=== PATIENT | male | born 1950 | race Caucasian/White ===

== ENCOUNTER 2018-07-21 10:00 | Inpatient (IN) ==
[2018-07-21] MEDS ORDERED: ALBUTEROL/IPRATROPIUM 3 ML NEB RESP TX STA (10:27)
[2018-07-21] MEDS ORDERED: SODIUM CHLORIDE 0.9% 500 ML IV STA (10:27)
[2018-07-21] MEDS ORDERED: ACETAMINOPHEN 500 MG TABLET PO STA (10:27)
[2018-07-21 10:39] LABS: Basophils # 0.1 10*3/uL (0.0-0.2); Basophils % 0.8 % (0.0-0.8); Eosinophils # 0.1 10*3/uL (0.0-0.87); Eosinophils % 0.7 % (0.00-10.9); Hematocrit 40.7 VOL% (42.0-52.0); Hemoglobin 14.4 GM/DL (14.0-18.0); Immature Granulocytes % 0.4 %; Immature Granulocytes Absolute 0.04 #; Lymphocytes # 0.7 10*3/uL (1.4-4.0); Lymphocytes % 6.9 % (21.2-54.2); Mean Corpuscular HGB Conc 35.4 GM/DL (32-36); Mean Corpuscular Hemoglobin 30 PG (27-34); Mean Corpuscular Volume 85.9 FL (87-102); Mean Platelet Volume 10.7 FL (9.6-12.0); Monocytes # 0.5 10*3/uL (0.11-0.8); Monocytes % 4.8 % (1.7-12.7); Neutrophils # 8.9 10*3/uL (1.4-7.4); Neutrophils % 86.4 % (38.7-73.9); Platelet Count 241 T/CUMM (130-400); Red Blood Count 4.74 MC/CUMM (3.8-5.5); Red Cell Distribution Width 13.2 % (9.3-17.3); White Blood Count 10.3 T/CUMM (4-12)
[2018-07-21 10:43] LABS: INR 0.9
[2018-07-21 10:52] LABS: Albumin 3.9 G/DL (3.4-5.0); Bilirubin,Total 1.3 MG/DL (0.2-1.0); Calcium 8.7 MG/DL (8.5-10.1); Osmolality,Calculated 273.8 MOS/KG (273-304); Potassium 5.3 MMOL/L (3.5-5.1); Total Protein 7.9 G/DL (6.4-8.3)
[2018-07-21 11:00] LABS: Lactic Acid 1.9 MMOL/L (0.4-2.0)
[2018-07-21 11:43] LABS: Apearance,Urine CLEAR (Clear); Bilirubin,Urine Negative (Negative); Blood, Urine Negative (Negative); Glucose,Urine (UA) Negative (Negative); Hyaline Casts,Urine 5 /LPF (0-3); Ketones,Urine Negative (Negative); Mucus,Urine Occasional /LPF (Occasional); Nitrite,Urine Negative (Negative); Protein,Urine Negative; RBC,Urine <1 /HPF (0-4); Urine Color Yellow (Yellow); Urine Specific Gravity 1.017 (1.001-1.035); Urine Urobilinogen < 2.0 EU/DL (0.2-1.0); WBC,Urine 1 /HPF (0-6)
[2018-07-21] MEDS ORDERED: cefTRIAXone 1,000 MG in SODIUM CHLORIDE 0.9% 100 ML IV STA (13:22)
[2018-07-21] MEDS ORDERED: cefTRIAXone 1,000 MG in SYRINGE 1 EACH IV STA (13:32)
[2018-07-21 14:29] LABS: Troponin I 0.103 NG/ML (0.00-0.045)
[2018-07-21 14:37] LABS: Barbiturates Screen,Urine Negative (Negative); Benzodiazepines Screen,Urine Negative (Negative); Cannabinoid Screen,Urine Negative (Negative); Opiate Screen,Urine Negative (Negative); Phencyclidine Screen,Urine Negative (Negative)
[2018-07-21] MEDS ORDERED: NITROGLYCERIN SL 0.4 MG TABLET SL PRN (15:48)
[2018-07-21] MEDS ORDERED: ALBUTEROL/IPRATROPIUM 3 ML NEB RESP TX PRN (15:48)
[2018-07-21] MEDS ORDERED: ACETAMINOPHEN 325 MG TABLET PO PRN (15:48)
[2018-07-21] MEDS ORDERED: ONDANSETRON 4 MG/2 ML VIAL IV PRN (15:48)
[2018-07-21] MEDS ORDERED: SODIUM CHLORIDE 0.9% 1,000 ML IV SCH (16:00)
[2018-07-21] MEDS: metroNIDAZOLE INJ 500 MG in PREMIX 1 EACH IV SCH (16:40)
[2018-07-21] MEDS: SODIUM CHLORIDE 0.9% 1,000 ML IV SCH (16:40)
[2018-07-21] MEDS ORDERED: CARVEDILOL 3.125 MG TABLET PO ONE (18:27)
[2018-07-21] MEDS ORDERED: ENOXAPARIN 30 MG/0.3 ML SYRINGE SUBCUT SCH ×2 (18:30→21:00)
[2018-07-21] MEDS: CIPROFLOXACIN INJ 400 MG in PREMIX 1 EACH IV SCH (18:36)
[2018-07-21] MEDS ORDERED: CARVEDILOL 3.125 MG TABLET PO SCH (21:00)
[2018-07-21] MEDS: DOCUSATE SODIUM 100 MG CAPSULE PO SCH (22:12)
[2018-07-21] MEDS: AMITRIPTYLINE 100 MG TABLET PO SCH (22:12)
[2018-07-21] MEDS: TEMAZEPAM 7.5 MG CAPSULE PO PRN (22:13)
[2018-07-21] MEDS: EZETIMIBE 10 MG TABLET PO SCH (22:13)
[2018-07-21] MEDS: ATORVASTATIN 20 MG TABLET PO SCH (22:13)
[2018-07-22] MEDS: metroNIDAZOLE INJ 500 MG in PREMIX 1 EACH IV SCH ×3 (00:17→15:58)
[2018-07-22] MEDS: CIPROFLOXACIN INJ 400 MG in PREMIX 1 EACH IV SCH ×2 (05:42→17:07)
[2018-07-22] MEDS: SODIUM CHLORIDE 0.9% 1,000 ML IV SCH ×2 (05:48→10:52)
[2018-07-22 05:50] LABS: Basophils # 0.1 10*3/uL (0.0-0.2); Basophils % 0.8 % (0.0-0.8); Hematocrit 36.7 VOL% (42.0-52.0); Hemoglobin 12.8 GM/DL (14.0-18.0); Immature Granulocytes % 0.3 %; Immature Granulocytes Absolute 0.02 #; Lymphocytes # 0.8 10*3/uL (1.4-4.0); Lymphocytes % 10.6 % (21.2-54.2); Mean Corpuscular HGB Conc 34.9 GM/DL (32-36); Mean Corpuscular Hemoglobin 29 PG (27-34); Mean Corpuscular Volume 84.4 FL (87-102); Mean Platelet Volume 9.9 FL (9.6-12.0); Monocytes # 0.7 10*3/uL (0.11-0.8); Monocytes % 9.1 % (1.7-12.7); Neutrophils % 79.2 % (38.7-73.9); Platelet Count 176 T/CUMM (130-400); Red Blood Count 4.35 MC/CUMM (3.8-5.5); Red Cell Distribution Width 13.2 % (9.3-17.3); White Blood Count 7.6 T/CUMM (4-12)
[2018-07-22 06:21] LABS: Albumin 3.2 G/DL (3.4-5.0); Bilirubin,Total 1.3 MG/DL (0.2-1.0); Calcium 8.1 MG/DL (8.5-10.1); Osmolality,Calculated 277.4 MOS/KG (273-304); Potassium 3.5 MMOL/L (3.5-5.1); Risk Ratio 3.48; Total Protein 6.3 G/DL (6.4-8.3); VLDL CHOLESTEROL 26.6 MG/DL
[2018-07-22] MEDS ORDERED: MAGNESIUM SULF RIDER 2 GM in PREMIX 1 EACH IV ONE (08:36)
[2018-07-22] MEDS ORDERED: PANTOPRAZOLE 40 MG TABLET PO SCH (09:00)
[2018-07-22] MEDS: DULoxetine 30 MG CAPSULE PO SCH (09:15)
[2018-07-22] MEDS: PANTOPRAZOLE 40 MG TABLET PO SCH (09:15)
[2018-07-22] MEDS: FOSINOPRIL 10 MG TABLET PO SCH (09:15)
[2018-07-22] MEDS: ASPIRIN 325 MG TABLET PO SCH (09:15)
[2018-07-22] MEDS: DOCUSATE SODIUM 100 MG CAPSULE PO SCH ×3 (09:15→21:37)
[2018-07-22] MEDS: CARVEDILOL 3.125 MG TABLET PO SCH ×2 (09:16→16:02)
[2018-07-22] MEDS: SODIUM CHLOR 0.9% KCL 40 MEQ 40 MEQ/1,000 ML BAG IV SCH ×2 (09:17→21:35)
[2018-07-22 19:02] LABS: Hematocrit 32.6 VOL% (42.0-52.0); Hemoglobin 11.1 GM/DL (14.0-18.0)
[2018-07-22] MEDS: EZETIMIBE 10 MG TABLET PO SCH (21:35)
[2018-07-22] MEDS: ATORVASTATIN 20 MG TABLET PO SCH (21:35)
[2018-07-22] MEDS: MAGNESIUM OXIDE 400 MG TABLET PO SCH (21:36)
[2018-07-22] MEDS: AMITRIPTYLINE 100 MG TABLET PO SCH (21:36)
[2018-07-22] MEDS: TEMAZEPAM 7.5 MG CAPSULE PO PRN (22:24)
[2018-07-23] MEDS: metroNIDAZOLE INJ 500 MG in PREMIX 1 EACH IV SCH ×3 (00:08→16:16)
[2018-07-23] MEDS: CIPROFLOXACIN INJ 400 MG in PREMIX 1 EACH IV SCH ×2 (05:27→18:31)
[2018-07-23] MEDS: MAGNESIUM OXIDE 400 MG TABLET PO SCH ×2 (09:23→22:11)
[2018-07-23] MEDS: CARVEDILOL 3.125 MG TABLET PO SCH ×2 (09:23→16:19)
[2018-07-23] MEDS: PANTOPRAZOLE 40 MG TABLET PO SCH (09:23)
[2018-07-23] MEDS: DULoxetine 30 MG CAPSULE PO SCH (09:23)
[2018-07-23] MEDS: ASPIRIN 325 MG TABLET PO SCH (09:23)
[2018-07-23] MEDS: FOSINOPRIL 10 MG TABLET PO SCH (09:23)
[2018-07-23] MEDS: DOCUSATE SODIUM 100 MG CAPSULE PO SCH ×2 (09:43→22:11)
[2018-07-23] MEDS: CHOLESTYRAMINE 4 GM PACK PO SCH ×2 (11:05→22:11)
[2018-07-23] MEDS: SODIUM CHLOR 0.9% KCL 40 MEQ 40 MEQ/1,000 ML BAG IV SCH ×3 (13:59→15:33)
[2018-07-23] MEDS: AMITRIPTYLINE 100 MG TABLET PO SCH (22:10)
[2018-07-23] MEDS: EZETIMIBE 10 MG TABLET PO SCH (22:10)
[2018-07-23] MEDS: ATORVASTATIN 20 MG TABLET PO SCH (22:10)
[2018-07-24] MEDS: metroNIDAZOLE INJ 500 MG in PREMIX 1 EACH IV SCH ×2 (00:49→09:46)
[2018-07-24] MEDS: SODIUM CHLOR 0.9% KCL 40 MEQ 40 MEQ/1,000 ML BAG IV SCH ×2 (03:51→13:19)
[2018-07-24] MEDS: CIPROFLOXACIN INJ 400 MG in PREMIX 1 EACH IV SCH (05:26)
[2018-07-24] MEDS: CHOLESTYRAMINE 4 GM PACK PO SCH (09:46)
[2018-07-24] MEDS: DULoxetine 30 MG CAPSULE PO SCH (09:46)
[2018-07-24] MEDS: DOCUSATE SODIUM 100 MG CAPSULE PO SCH (09:46)
[2018-07-24] MEDS: MAGNESIUM OXIDE 400 MG TABLET PO SCH (09:46)
[2018-07-24] MEDS: FOSINOPRIL 10 MG TABLET PO SCH (09:46)
[2018-07-24] MEDS: ASPIRIN 325 MG TABLET PO SCH (09:46)
[2018-07-24] MEDS: PANTOPRAZOLE 40 MG TABLET PO SCH (09:46)
[2018-07-24] MEDS: CARVEDILOL 3.125 MG TABLET PO SCH (09:47)
[2018-07-24 09:52] LABS: Basophils # 0.1 10*3/uL (0.0-0.2); Basophils % 1.3 % (0.0-0.8); Eosinophils # 0.2 10*3/uL (0.0-0.87); Hematocrit 35.9 VOL% (42.0-52.0); Hemoglobin 12.2 GM/DL (14.0-18.0); Immature Granulocytes % 0.3 %; Immature Granulocytes Absolute 0.02 #; Lymphocytes # 1.2 10*3/uL (1.4-4.0); Lymphocytes % 20.9 % (21.2-54.2); Mean Corpuscular Hemoglobin 29 PG (27-34); Mean Corpuscular Volume 86.5 FL (87-102); Mean Platelet Volume 9.2 FL (9.6-12.0); Monocytes # 0.6 10*3/uL (0.11-0.8); Monocytes % 10.3 % (1.7-12.7); Neutrophils # 3.8 10*3/uL (1.4-7.4); Neutrophils % 64.2 % (38.7-73.9); Platelet Count 174 T/CUMM (130-400); Red Blood Count 4.15 MC/CUMM (3.8-5.5); White Blood Count 5.9 T/CUMM (4-12)
[2018-07-24 10:12] LABS: Calcium 8.2 MG/DL (8.5-10.1); Osmolality,Calculated 280.1 MOS/KG (273-304); Potassium 4.2 MMOL/L (3.5-5.1)
[2018-07-24 12:34] VITALS: BP 137/77
== END 2018-07-24 13:40 | disposition home health service (06) | DRG 373 ==
LOC: N.EDINP 10:00 → N.ED 10:00 → N.5E 14:38
PROVIDERS: ADMIT Family Medicine; ATTEND Family Medicine